=== PATIENT | female | born 1990 ===

== ENCOUNTER 2017-05-18 05:54 | Emergency (ER) | payer SELFPAY ==
[2017-05-18 06:11] VITALS: BP 130/87; PULSE 88; RESP 22; TEMP 98.7; O2SAT 98
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
[2017-05-18] MEDS ORDERED: Bacitracin 500 Units/gm Oint Foilpak UD ONE (07:46)
[2017-05-18] MEDS ORDERED: Tetanus/Diphtheria Toxoids 0.5 ml Syringe IM ONE ×2 (07:50→08:07)
--- NOTE | 2017-05-18 09:00 | RAD ---
PROCEDURE: Right humerus HISTORY: trauma COMPARISON: None. FINDINGS: BONES: Normal. No fracture or focal lesion. SOFT TISSUES: Normal. OTHER FINDINGS: None. IMPRESSION: Normal radiographs of right humerus.
--- NOTE | 2017-05-18 12:57 | RAD ---
PROCEDURE: Left Knee Radiographs. HISTORY: Pain. COMPARISON: None. FINDINGS: BONES: Normal. No fracture. JOINTS: Normal. No osteoarthritis. JOINT EFFUSION: Suspect small suprapatellar joint effusion OTHER FINDINGS: None. IMPRESSION: No evidence of acute displaced fracture nor dislocation. Small suprapatellar joint effusion.
== END 2017-05-18 08:12 | disposition home or self-care (01) ==
LOC: C.ER 05:54
DX: S80.12XA Contusion of left lower leg, initial encounter (principal); V03.90XA Pedestrian on foot injured in collision with car, pick-up truck or van, unspecified whether traffic or nontraffic accident, initial encounter; Y92.89 Other specified places as the place of occurrence of the external cause; Z23 Encounter for immunization